=== PATIENT | female | born 1950 | race Caucasian/White ===

== ENCOUNTER 2018-12-14 07:21 | Outpatient (CLI) | payer OTHER | END 2018-12-14 07:23 | disposition home or self-care (01) | LOC: NUCLEAR 07:21 | DX: R07.89 Other chest pain (principal); I10 Essential (primary) hypertension; E66.3 Overweight; E78.2 Mixed hyperlipidemia; I20.9 Angina pectoris, unspecified | CPT/HCPCS: 78452; 93017; A9500; J0153 ==

== ENCOUNTER 2019-08-07 14:49 | Outpatient (CLI) | payer OTHER ==
[~2019-08-07] VITALS: Ht 152.4 cm; Wt 63.5 kg
[2019-08-07] MEDS ORDERED: AUGMENTIN XR 11 EACH PO (15:30)
[2019-08-07] MEDS ORDERED: MEDROLPACK PO (15:30)
[2019-08-07] MEDS ORDERED: DERMOTIC20 ML OTIC (15:36)
== END 2019-08-11 13:38 | disposition home or self-care (01) ==
LOC: OFIC 805 14:49
PROVIDERS: ATTEND Otolaryngology
DX: R22.1 Localized swelling, mass and lump, neck (principal); H92.01 Otalgia, right ear; H61.21 Impacted cerumen, right ear

== ENCOUNTER 2019-08-17 09:35 | Outpatient (CLI) | payer OTHER ==
[~2019-08-17 09:35] MED LIST: AUGMENTIN XR 11 EACH PO; DERMOTIC20 ML OTIC; MEDROLPACK PO
== END 2019-08-18 08:47 | disposition home or self-care (01) ==
LOC: OFIC 805 09:35
PROVIDERS: ATTEND Otolaryngology
DX: L30.8 Other specified dermatitis (principal); H92.01 Otalgia, right ear; B02.8 Zoster with other complications